=== PATIENT | female | born 1985 | race Caucasian/White ===

== ENCOUNTER 2020-09-21 07:41 | Outpatient (CLI) | payer OTHER, SELFPAY ==
[2020-09-24 07:12] LABS: Prolactin 2.6 ng/mL (***)
[2020-09-26 15:07] LABS: Z Score Female 1.6 SD (-2.0 - +2.0)
== END 2020-09-21 07:42 | disposition home or self-care (01) ==
LOC: CHSLAB 07:50
PROVIDERS: PCP Family Medicine
DX: R79.89 Other specified abnormal findings of blood chemistry (principal)
CPT/HCPCS: 36415; 84146; 84305

== ENCOUNTER 2020-10-06 08:01 | Outpatient (CLI) | payer OTHER, SELFPAY ==
[2020-10-09 08:49] LABS: Cortisol Random 12.1 mcg/dL (***)
[2020-10-10 13:34] LABS: Testosterone Free 3.4 pg/mL (0.1-6.4); Testosterone Total 24 ng/dL (2-45)
[2020-10-11 13:47] LABS: Adrenocorticotropic Hormone 6 pg/mL (6-50)
== END 2020-10-06 08:02 | disposition home or self-care (01) ==
LOC: CHSLAB 08:08
PROVIDERS: PCP Family Medicine
DX: E27.40 Unspecified adrenocortical insufficiency (principal); L68.0 Hirsutism
CPT/HCPCS: 36415; 82024; 82533; 84402; 84403

== ENCOUNTER 2020-12-06 12:47 | Outpatient (CLI) | payer OTHER, SELFPAY ==
--- NOTE | ~2020-12-06 | US_ITS ---
EXAMINATION: US pelvic complete DATE: 12/06/2020 13:50 INDICATION: Menstrual irregularity Comparison:No prior studies for comparison. TECHNIQUE: Multiple transabdominal and endovaginal sonographic images of the pelvis performed. FINDINGS: The uterus measures 8.3 x 3.8 x 4.8 cm. The endometrial complex measures 3 mm. The right ovary measures 2.5 x 1.2 x 1.2 cm and the left ovary measures 3.5 x 1.9 x 1.6 cm. There ar e small follicles in each ovary. Normal doppler signal in both ovaries. There is trace free fluid in the pelvis. There are no abnormal masses seen on either side. IMPRESSION: 1. Unremarkable pelvic ultrasound. Reviewed, dictated and finalized at location A.
== END 2020-12-06 12:48 | disposition home or self-care (01) ==
LOC: CHSIMG 12:49
PROVIDERS: PCP Family Medicine; Visit Provider Nurse Practitioner
DX: N92.6 Irregular menstruation, unspecified (principal)
CPT/HCPCS: 76856

== ENCOUNTER 2020-12-09 12:59 | Outpatient (CLI) | payer OTHER, SELFPAY ==
--- NOTE | ~2020-12-09 | US_ITS ---
EXAMINATION: US transvaginal DATE: 12/09/2020 13:46 INDICATION: Menstrual irregularity Comparison:Ultrasound dated 12/06/2020 TECHNIQUE: Multiple endovaginal sonographic images of the pelvis performed. FINDINGS: The uterus measures 6.5 x 4 x 4.8 cm. The endometrial complex measures 6 mm. The right ovary measures 2.1 x 1.3 x 2.1 cm and the left ovary measures 2 x 1.5 x 1.8 cm. There are small follicles in each ovary. Normal doppler signal in both ovaries. There is no free fluid in the pelvis. There are no abnormal masses seen on either side. IMPRESSION: 1. Normal pelvic ultrasound. Reviewed, dictated and finalized at location A.
== END 2020-12-09 13:00 | disposition home or self-care (01) ==
LOC: CHSIMG 13:00
PROVIDERS: PCP Family Medicine; Visit Provider Nurse Practitioner
DX: N92.6 Irregular menstruation, unspecified (principal)
CPT/HCPCS: 76830